=== PATIENT | male | born 1935 | race Caucasian/White ===

== ENCOUNTER 2024-03-18 13:16 | Outpatient (REF) | payer SELFPAY ==
[2024-03-18 13:41] LABS: Appearance Urine Turbid; Color Urine Yellow; Glucose Urine UA Negative (Negative); Leukocyte Esterase Urine Large (3+) (Negative); Nitrite Urine Negative (Negative); Specific Gravity - Urine >= 1.030 (1.005-1.025); UMIC TRIGGER UA YES; Urine Blood Large (3+) (Negative); Urine Ketones Negative (Negative); Urine Protein >=1000 (4+) mg/dL (Neg-Trace)
[2024-03-18 14:27] LABS: RBC Urine >20 /HPF (0-2)
[2024-03-18 14:28] LABS: Bacteria Urine Trace (None Seen); Hyaline Casts Urine 0-2 /LPF (0-2); Squamous Epithelial Cell Urine 0-2 /HPF (0-2); WBC Urine >50 /HPF (0-5)
== END 2024-03-18 13:17 | disposition home or self-care (01) ==
LOC: HO.HVNA 13:16
PROVIDERS: Visit Provider Urology
DX: R82.90 Unspecified abnormal findings in urine (principal)
CPT/HCPCS: 81001